=== PATIENT | male | born 1955 | race Two or more races ===

== ENCOUNTER 2023-02-25 15:41 | Emergency (ER) | payer MEDICARE ==
[~2023-02-25] VITALS: Ht 160 cm; Wt 72.6 kg
[2023-02-25 16:45] LABS: APPEARANCE,URINE CLEAR (CLEAR); BILIRUBIN,URINE NEGATIVE (NEGATIVE); BLOOD, URINE 3+ Ery/uL (NEGATIVE); COLOR,URINE YELLOW (YELLOW); KETONES,URINE NEGATIVE (NEGATIVE); LEUKOCYTE ESTERASE ,URINE TRACE (NEGATIVE); NITRITE, URINE POSITIVE (NEGATIVE); PROTEIN,URINE TRACE mg/dl (NEGATIVE); UGLUCOSE NEGATIVE (NEGATIVE); UROBILINOGEN,URINE 0.2 EU/dL (0.2)
[2023-02-25 17:00] LABS: ADD URINE CULTURE YES; BACTERIA,URINE RARE /HPF (None Seen); RBC,URINE 51-80 /HPF (0-2)
[2023-02-25 17:47] VITALS: BP 134/80; TEMP 98.4; O2SAT 100
== END 2023-02-25 17:48 | disposition home or self-care (01) ==
LOC: ER 15:48
DX: R31.9 Hematuria, unspecified (principal)
CPT/HCPCS: 81001; 87086-TC

== ENCOUNTER 2023-02-25 20:48 | Emergency (ER) | payer MEDICARE ==
[~2023-02-25] VITALS: Ht 160 cm; Wt 72.6 kg
[2023-02-25 21:42] VITALS: BP 139/70; TEMP 98.1; O2SAT 98
== END 2023-02-25 21:43 | disposition home or self-care (01) ==
LOC: ER 20:50
DX: Z46.6 Encounter for fitting and adjustment of urinary device (principal)

== ENCOUNTER 2023-10-14 11:05 | Emergency (ER) | payer MEDICARE ==
[~2023-10-14] VITALS: Ht 162.6 cm; Wt 75.7 kg
[2023-10-14 13:13] LABS: APPEARANCE,URINE CLEAR (CLEAR); BILIRUBIN,URINE NEGATIVE (NEGATIVE); BLOOD, URINE NEGATIVE Ery/uL (NEGATIVE); COLOR,URINE YELLOW (YELLOW); KETONES,URINE NEGATIVE (NEGATIVE); LEUKOCYTE ESTERASE ,URINE NEGATIVE (NEGATIVE); NITRITE, URINE NEGATIVE (NEGATIVE); PROTEIN,URINE NEGATIVE (NEGATIVE); UGLUCOSE NEGATIVE (NEGATIVE); UROBILINOGEN,URINE 0.2 EU/dL (0.2)
[2023-10-14 13:19] LABS: BASOPHILS % (AUTO) 0.6 % (0.0-2.0); EOSINOPHILS # (AUTO) 0.1 K/uL (0.0-0.7); EOSINOPHILS % (AUTO) 1.2 % (0.0-6.0); HEMATOCRIT 42 % (39-51); HEMOGLOBIN 13.9 g/dL (13.5-17.5); LYMPHOCYTES # (AUTO) 1.9 K/uL (0.8-4.8); LYMPHOCYTES % (AUTO) 21.2 % (20.0-44.0); MEAN CORPUSCULAR HEMOGLOBIN 28 PG (26.0-33.0); MEAN CORPUSCULAR HGB CONC 33 g/dl (31.0-36.0); MEAN CORPUSCULAR VOLUME 86 fL (80-96); MONOCYTES # (AUTO) 0.6 K/uL (0.1-1.30); NEUTROPHILS # (AUTO) 6.1 K/uL (1.8-8.9); PLATELET COUNT (AUTO) 194 K/uL (150-450); RED BLOOD CELL COUNT(AUTO) 4.95 MIL/uL (4.5-6.0); RED CELL DISTRIBUTION WIDTH 14.6 % (11.5-15.0); WHITE BLOOD COUNT (AUTO) 8.8 K/uL (4.3-11.0)
[2023-10-14 13:39] LABS: CALCIUM, SERUM 8.5 mg/dL (8.5-10.1); CREATININE 0.8 mg/dL (0.6-1.3); POTASSIUM 3.8 mmol/L (3.5-5.1)
[2023-10-14] MEDS ORDERED: TAMS-12 PO (14:43)
[2023-10-14 15:01] VITALS: BP 154/78; TEMP 98.2; O2SAT 98
== END 2023-10-14 15:02 | disposition home or self-care (01) ==
LOC: ER 11:05
DX: R33.9 Retention of urine, unspecified (principal); I10 Essential (primary) hypertension; E11.9 Type 2 diabetes mellitus without complications; F10.10 Alcohol abuse, uncomplicated; Z87.438 Personal history of other diseases of male genital organs; Y90.9 Presence of alcohol in blood, level not specified
CPT/HCPCS: 36415; 80048-TC; 85025-TC